=== PATIENT | female | born 1950 | race Caucasian/White ===

== ENCOUNTER 2016-11-16 17:56 | Emergency (ER) | payer BC ==
[2016-11-16 18:45] VITALS: BP 136/67
--- NOTE | 2016-11-16 19:16 | UC ---
FLU HPI - HPI Summary HPI Summary: pt c/o influenza like symptoms of nasal congestion, sore throat, sinus pressure , fever, chills, myalgia and generalized malaise X 1 week - History of Current Complaint Chief Complaint: UCGeneralIllness Stated Complaint: CONGESTION/FEVER Time Seen by Provider: 11/16/16 18:47 Hx Obtained From: Patient Hx Last Menstrual Period: n/a ?: No Onset/Duration: Gradual Onset, Lasting Days Severity Currently: Moderate Severity Initially: Mild Associated Signs & Symptoms: Positive: Fever, Myalgia, Cough, Sore Throat, Nasal Congestion Related Hx: Possible Flu/Infectious Exposure - Allergy/Home Medications Allergies/Adverse Reactions: Allergies Allergy/AdvReac Type Severity Reaction Status Date / Time Sulfamethoxazole Allergy Rash Verified 11/16/16 18:45 w/Trimethoprim [From Bactrim] PMH/Surg Hx/FS Hx/Imm Hx Previously Healthy: No - see pmh Cardiovascular History Of: Reports: Hypertension - Surgical History Surgical History: Yes Surgery Procedure, Year, and Place: Left Oopherectomy, 2002, ; Appendectomy, 1957 - Family History Known Family History: Positive: Hypertension - Social History Alcohol Use: Rare Substance Use Type: None Smoking Status (MU): Never Smoked Tobacco - Immunization History Most Recent Influenza Vaccination: 06/28/16 Review of Systems Constitutional: Fever, Chills, Fatigue Skin: Negative Eyes: Negative ENT: Sore Throat, Other - sinus pressure, nasal congestion Respiratory: Cough Cardiovascular: Negative Gastrointestinal: Negative Genitourinary: Negative Motor: Negative Neurovascular: Negative Musculoskeletal: Myalgia Neurological: Negative Psychological: Negative All Other Systems Reviewed And Are Negative: Yes Physical Exam Triage Information Reviewed: Yes Appearance: Ill-Appearing Vital Signs: Initial Vital Signs Temp 98.4 F 11/16/16 18:41 Pulse 86 11/16/16 18:41 Resp 16 11/16/16 18:41 BP 136/67 11/16/16 18:41 Pulse Ox 98 11/16/16 18:41 ENT: Positive: Pharyngeal erythema, Nasal congestion, TM bulging - left TM, Other: - maxillary and frontal tenderness Neck exam: Normal Respiratory Exam: Normal Cardiovascular Exam: Normal Musculoskeletal Exam: Normal Neurological Exam: Normal Psychological Exam: Normal Skin Exam: Normal Flu Course/Dx - Differential Dx/Diagnosis Differential Diagnosis/HQI/PQRI: Bronchitis, Influenza, Upper Respiratory Infection Provider Diagnoses: sinusitis Discharge - Discharge Plan Condition: Stable Disposition: HOME Prescriptions: Amoxicillin (*) 875 mg PO BID #20 tab Patient Education Materials: Sinusitis (ED) Referrals: Faustino TOURE,Pratima Harrell [Primary Care Provider] -
== END 2016-11-16 19:38 | disposition home or self-care (01) ==
LOC: UCCORT 17:56
DX: J32.9 Chronic sinusitis, unspecified (principal); Z88.2 Allergy status to sulfonamides
CPT/HCPCS: 87502; 99212; G0463

== ENCOUNTER 2018-10-16 10:25 | Day surgery (SDC) | payer BC ==
[2018-10-16] MEDS ORDERED: Midazolam* 1 MG/ML 5 ML VIAL (5 MG) ONE (11:52)
[2018-10-16] MEDS ORDERED: Lidocaine 2% EPI 1:200000 MPF*10-20 ML VIAL ONE (12:10)
[2018-10-16] MEDS ORDERED: Neomycin/Polymy/Dex OPTH.SUSP* MAXITROL 0.1% 5 ML ONE (12:10)
[2018-10-16] MEDS ORDERED: Phenylephrine 2.5% OPTH.SOL* 2 ML BTL ONE (12:10)
[2018-10-16] MEDS ORDERED: Lidocaine 1%* 5 ML VIAL ONE (12:10)
[2018-10-16] MEDS ORDERED: Povidone Iodine 5% OPTH* 30 ML BTL ONE (12:10)
[2018-10-16] MEDS ORDERED: acetaZOLAMIDE TAB* 250 MG ONE (12:10)
[2018-10-16] MEDS ORDERED: Cyclopentolate 1% OPTH.SOL* 2 ML BTL ONE (12:10)
[2018-10-16] MEDS ORDERED: Ketorolac 0.5% OPHTH (NF) 0.5 % 5 ML BTL ONE (12:10)
[2018-10-16] MEDS ORDERED: Proparacaine 0.5% OPHTH.SOL* 15 ML BTL ONE (12:10)
[2018-10-16] MEDS ORDERED: fentaNYL* 50 MCG/ML 2 ML VIAL (100 MCG VIAL) ONE (12:26)
--- NOTE | 2018-10-16 14:48 | OP ---
DATE OF OPERATION: 10/16/2018. DATE OF : 1950. SURGEON: Pancho Abraham M.D. PREOPERATIVE DIAGNOSIS: Cataract left eye. POSTOPERATIVE DIAGNOSIS: Cataract left eye. OPERATIVE PROCEDURE: Extracapsular cataract extraction with intraocular lens implant left eye. PROCEDURE: The patient was brought to the operating room after being given 1/2% Alcaine with epineph rine drops in the preoperative area. The eye was prepped and draped in the usual sterile fashion. S terile drape and eyelid speculum were placed. Again, topical 1/2% Alcaine with epinephrine was given . A paracentesis incision was made at the 3 o'clock position with the No.75 blade. Clear cornea inc ision 2.2 x 2.2-mm was created at the 6 o'clock position starting at the anterior limbus using the 2. 2-mm keratome. The anterior chamber was irrigated with 0.4 mL of 1% non-preservative intracameral li docaine and filled with DisCoVisc. A capsulorrhexis was completed using the cystotome and the Utrata forceps. Hydrodissection was performed with balanced salt solution. The lens nucleus was removed wi th the Phacoemulsification handpiece without incident. Cortex was removed with the irrigation-aspira tion handpiece. The capsular bag was re-inflated using DisCoVisc and an [id number] 26.5 implant was inse rted with the shooter. The irrigation-aspiration handpiece was used to remove all residual DisCoVisc . The eye was refilled with balanced salt solution and the wound checked and found to be watertight. Topical Maxitrol drops were given. [id number]/[facility] #: [id number]
[2018-10-22] MEDS ORDERED: Buffered Lidocaine 1% SYRIN* 1 ML/SYRINGE INTRADERM ONE (14:05)
[2018-10-23] MEDS ORDERED: Acetaminophen TAB* 325 MG PO PRN (05:00)
[2018-10-23 11:07] VITALS: BP 117/74
== END 2018-10-16 12:55 | disposition home or self-care (01) ==
LOC: OREAST 10:25
PROVIDERS: ATTEND Specialist
DX: H25.812 Combined forms of age-related cataract, left eye (principal); H35.372 Puckering of macula, left eye
CPT/HCPCS: A9270-GY; J2250; J3010

== ENCOUNTER 2018-10-23 08:20 | Day surgery (SDC) | payer BC ==
[2018-10-16 12:46] VITALS: BP 122/83
[~2018-10-23 08:20] MED LIST: Acetaminophen TAB* 325 MG PO PRN; Buffered Lidocaine 1% SYRIN* 1 ML/SYRINGE INTRADERM ONE
[2018-10-23] MEDS ORDERED: Midazolam* 1 MG/ML 5 ML VIAL (5 MG) ONE (10:33)
[2018-10-23] MEDS ORDERED: fentaNYL* 50 MCG/ML 2 ML VIAL (100 MCG VIAL) ONE (10:47)
[2018-10-23] MEDS ORDERED: Povidone Iodine 5% OPTH* 30 ML BTL ONE (11:32)
[2018-10-23] MEDS ORDERED: Phenylephrine 2.5% OPTH.SOL* 2 ML BTL ONE (11:32)
[2018-10-23] MEDS ORDERED: Neomycin/Polymy/Dex OPTH.SUSP* MAXITROL 0.1% 5 ML ONE (11:32)
[2018-10-23] MEDS ORDERED: Lidocaine 1%* 5 ML VIAL ONE (11:32)
[2018-10-23] MEDS ORDERED: Cyclopentolate 1% OPTH.SOL* 2 ML BTL ONE (11:32)
[2018-10-23] MEDS ORDERED: Ketorolac 0.5% OPHTH (NF) 0.5 % 5 ML BTL ONE (11:32)
[2018-10-23] MEDS ORDERED: Proparacaine 0.5% OPHTH.SOL* 15 ML BTL ONE (11:32)
[2018-10-23] MEDS ORDERED: Lidocaine 2% EPI 1:200000 MPF*10-20 ML VIAL ONE (11:32)
--- NOTE | 2018-10-23 12:00 | OP ---
OPERATIVE NOTE: DATE OF OPERATION: 10/23/18 DATE OF : [birth year] SURGEON: Pancho Abraham M.D. PREOPERATIVE DIAGNOSIS: Cataract, right eye. POSTOPERATIVE DIAGNOSIS: Cataract, right eye. OPERATIVE PROCEDURE: Extracapsular cataract extraction with intraocular lens implant, right eye. PROCEDURE: The patient was brought to the operating room after being given 1/2% Alcaine with epineph rine drops in the preoperative area. The eye was prepped and draped in the usual sterile fashion. S terile drape and eyelid speculum were placed. Again, topical 1/2% Alcaine with epinephrine was given . A paracentesis incision was made at the 9 o'clock position with the No.75 blade. Clear cornea inc ision 2.2 x 2.2-mm was created at the 12 o'clock position starting at the anterior limbus using the 2 .2-mm keratome. The anterior chamber was irrigated with 0.4 mL of 1% non-preservative intracameral l idocaine and filled with DisCoVisc. A capsulorrhexis was completed using the cystotome and the Utrat a forceps. Hydrodissection was performed with balanced salt solution. The lens nucleus was removed w ith the Phacoemulsification handpiece without incident. Cortex was removed with the irrigation-aspir ation handpiece. The capsular bag was re-inflated using DisCoVisc and an [id number] implant was inser vinay with the shooter. The irrigation-aspiration handpiece was used to remove all residual DisCoVisc. The eye was refilled with balanced salt solution and the wound checked and found to be watertight. Topical Maxitrol drops were given. [id number]/[facility] #: [id number]
== END 2018-10-23 11:18 | disposition home or self-care (01) ==
LOC: OREAST 08:20
PROVIDERS: ATTEND Specialist
DX: H25.811 Combined forms of age-related cataract, right eye (principal); H35.372 Puckering of macula, left eye; I10 Essential (primary) hypertension
CPT/HCPCS: A9270-GY; J2250; J3010; V2632

== ENCOUNTER 2018-12-12 18:29 | Emergency (ER) | payer BC ==
[2018-12-12 19:21] VITALS: BP 128/75
--- NOTE | 2018-12-12 20:14 | UC ---
Throat Pain/Nasal Ochoa HPI - HPI Summary HPI Summary: 2 day history of scratchy throat, with progressive harsh cough and onset of chills today. Works at [employer], where there have been many flu cases. She comes today for testing. Has had a flu shot. History of cold induced asthma; has not been using albuterol with this illness. - History of Current Complaint Chief Complaint: UCGeneralIllness Stated Complaint: SORE THROAT Time Seen by Provider: 12/12/18 20:02 Hx Obtained From: Patient Hx Last Menstrual Period: n/a Onset/Duration: Gradual Onset, Lasting Days - 2 Severity: Mild Pain Intensity: 4 Cough: Nonproductive Associated Signs & Symptoms: Positive: Dysphagia, Hoarseness. Negative: Fever, Vomiting - Epiglottits Risk Factors Epiglottis Risk Factors: Negative - Allergies/Home Medications Allergies/Adverse Reactions: Allergies Allergy/AdvReac Type Severity Reaction Status Date / Time sulfamethoxazole Allergy Rash Verified 12/12/18 19:11 [From Bactrim] trimethoprim [From Bactrim] Allergy Rash Verified 12/12/18 19:11 Home Medications: Home Medications Aspirin TAB* [Aspirin 325 MG TAB*] 325 mg PO DAILY 12/12/18 [History Confirmed 12/12/18] Ibuprofen TAB* [Advil TAB*] 400 mg PO Q6H PRN 12/12/18 [History Confirmed ] Pseudoephedrine TAB* [Sudafed TAB*] 30 mg PO Q6H PRN 12/12/18 [History Confirmed 12/12/18] PMH/Surg Hx/FS Hx/Imm Hx Previously Healthy: Yes Cardiovascular History: Hypertension Respiratory History: Asthma - cold induced. - Surgical History Surgical History: Yes Surgery Procedure, Year, and Place: Left Salping-Oopherectomy, 2002, [place]; Appendectomy, 1957. Total Hysterectomy 03/2018 - Family History Known Family History: Positive: Hypertension - Social History Occupation: Employed Full-time Lives: With Family Alcohol Use: Weekly Alcohol Amount: 2-3 times per week-wine with dinner Substance Use Type: None Smoking Status (MU): Never Smoked Tobacco - Immunization History Most Recent Influenza Vaccination: 06/28/16 Review of Systems All Other Systems Reviewed And Are Negative: Yes Constitutional: Positive: Chills, Fatigue Skin: Positive: Negative Eyes: Positive: Negative ENT: Positive: Sore Throat Respiratory: Positive: Cough. Negative: Shortness Of Breath Cardiovascular: Positive: Negative, Other - treated hypertension Gastrointestinal: Positive: Negative Genitourinary: Positive: Negative Motor: Positive: Negative Neurovascular: Positive: Negative Musculoskeletal: Positive: Myalgia Neurological: Positive: Headache Psychological: Positive: Negative Is Patient Immunocompromised?: No Physical Exam Triage Information Reviewed: Yes Appearance: No Pain Distress, Obese Vital Signs: Initial Vital Signs Temp 98.1 F 12/12/18 19:14 Pulse 89 12/12/18 19:14 Resp 15 12/12/18 19:14 BP 128/75 12/12/18 19:14 Pulse Ox 99 12/12/18 19:14 Eyes: Positive: Conjunctiva Clear ENT: Positive: Pharynx normal Neck: Positive: Supple, Nontender, No Lymphadenopathy Respiratory: Positive: Lungs clear, Normal breath sounds Cardiovascular: Positive: RRR, No Murmur Neurological: Positive: Alert Skin Exam: Normal Throat Pain/Nasal Course/Dx - Course Course Of Treatment: symptomatic treatment of respiratory illness - Differential Dx/Diagnosis Differential Diagnosis/HQI/PQRI: Influenza, Laryngitis, URI Provider Diagnosis: URI, acute Discharge - Sign-Out/Discharge Documenting (check all that apply): Patient Departure All imaging exams completed and their final reports reviewed: No Studies - Discharge Plan Condition: Stable Disposition: HOME Patient Education Materials: Viral Syndrome (ED) Referrals: Faustino TOURE,Pratima Harrell [Primary Care Provider] - Additional Instructions: Continue symptomatic treatment of your respiratory symptoms, with acetaminophen as needed for control of pain, and over the counter cough suppressants as needed. - Billing Disposition and Condition Condition: STABLE Disposition: Home
[2018-12-12 20:31] LABS: Influenza A Molecular NEGATIVE (Negative); Influenza B Molecular NEGATIVE (Negative)
== END 2018-12-12 20:45 | disposition home or self-care (01) ==
LOC: UCCORT 18:29
DX: J06.9 Acute upper respiratory infection, unspecified (principal); I10 Essential (primary) hypertension; Z88.2 Allergy status to sulfonamides; Z79.82 Long term (current) use of aspirin
CPT/HCPCS: 99211; G0463

== ENCOUNTER 2019-03-09 09:39 | Emergency (ER) | payer BC ==
[2019-03-09 09:56] VITALS: BP 155/76
--- NOTE | 2019-03-09 10:03 | UC ---
Respiratory Complaint HPI - HPI Summary HPI Summary: 69 yo female with cough/congestion, sore throat and fever x 4 days no cp or sob no n/v/d - History of Current Complaint Chief Complaint: UCRespiratory Stated Complaint: SORE THROAT, CONGESTION Time Seen by Provider: 03/09/19 09:46 Hx Obtained From: Patient Hx From Patient Unobtainable Due To: Dementia Hx Last Menstrual Period: n/a Onset/Duration: Gradual Onset, Lasting Days Timing: Constant Severity Initially: Mild Severity Currently: Moderate Pain Intensity: 0 Pain Scale Used: 0-10 Numeric Character: Cough: Productive Aggravating Factors: Nothing Alleviating Factors: Nothing Associated Signs And Symptoms: Positive: Fever, Chills, Nasal Congestion, Sinus Discomfort - Allergies/Home Medications Allergies/Adverse Reactions: Allergies Allergy/AdvReac Type Severity Reaction Status Date / Time sulfamethoxazole Allergy Rash Verified 03/09/19 09:52 [From Bactrim] trimethoprim [From Bactrim] Allergy Rash Verified 03/09/19 09:52 Home Medications: Home Medications Guaifen/Phenyleph/Acetaminophn [Tylenol Sinus Severe Caplet] 2 each PO Q4H PRN 03/09/19 [History Confirmed 03/09/19] PMH/Surg Hx/FS Hx/Imm Hx Cardiovascular History: Hypertension - Surgical History Surgical History: Yes Surgery Procedure, Year, and Place: Left Salping-Oopherectomy, 2002, ; Appendectomy, 1957. Total Hysterectomy 03/2018 - Family History Known Family History: Positive: Hypertension - Social History Alcohol Use: Weekly Alcohol Amount: 2-3 times per week-wine with dinner Substance Use Type: None Smoking Status (MU): Never Smoked Tobacco - Immunization History Most Recent Influenza Vaccination: 06/28/16 Review of Systems All Other Systems Reviewed And Are Negative: Yes Constitutional: Positive: Fever, Chills Skin: Positive: Negative Eyes: Positive: Negative ENT: Positive: Sore Throat, Sinus Congestion Respiratory: Positive: Cough Cardiovascular: Positive: Negative Gastrointestinal: Positive: Negative Genitourinary: Positive: Negative Motor: Positive: Negative Neurovascular: Positive: Negative Musculoskeletal: Positive: Negative Neurological: Positive: Negative Psychological: Positive: Negative Physical Exam Triage Information Reviewed: Yes Completion Of Physical Exam Limited Due To: Altered Mental Status Appearance: Well-Appearing, No Pain Distress, Well-Nourished Vital Signs: Initial Vital Signs Temp 98.3 F 03/09/19 09:49 Pulse 66 03/09/19 09:49 Resp 18 03/09/19 09:49 BP 155/76 03/09/19 09:49 Pulse Ox 100 03/09/19 09:49 Vital Signs Reviewed: Yes Eyes: Positive: Conjunctiva Clear ENT: Positive: Pharyngeal erythema, Nasal congestion, Uvula midline. Negative: Tonsillar swelling, Tonsillar exudate, Trismus, Muffled voice Neck: Positive: Supple, Nontender, No Lymphadenopathy Respiratory: Positive: Lungs clear, Normal breath sounds, No respiratory distress, No accessory muscle use Cardiovascular: Positive: RRR, No Murmur Musculoskeletal: Positive: ROM Intact, No Edema Neurological: Positive: Alert Psychological Exam: Normal Skin Exam: Normal Respiratory Course/Dx - Differential Dx/Diagnosis Provider Diagnosis: Acute bronchitis Discharge - Sign-Out/Discharge Documenting (check all that apply): Patient Departure All imaging exams completed and their final reports reviewed: No Studies - Discharge Plan Condition: Stable Disposition: HOME Prescriptions: Amoxicillin PO (*) [Amoxicillin 875 MG (*)] 875 mg PO BID #14 tab Patient Education Materials: Acute Bronchitis (ED) Referrals: Faustino TOURE,Pratima Harrell [Primary Care Provider] - 4 Days (if not better) - Billing Disposition and Condition Condition: STABLE Disposition: Home
== END 2019-03-09 10:14 | disposition home or self-care (01) ==
LOC: UCCORT 09:39
DX: J20.9 Acute bronchitis, unspecified (principal); Z88.2 Allergy status to sulfonamides
CPT/HCPCS: 99212; G0463

== ENCOUNTER 2019-07-09 12:43 | Emergency (ER) | payer BC ==
[2019-07-09 13:12] VITALS: BP 136/63
--- NOTE | 2019-07-09 13:34 | UC ---
UC Dental HPI - HPI Summary HPI Summary: 69-year-old female comes in with a chief complaint of left upper posterior dental pain. Started 2 days ago. Pain is worse with chewing. Pain radiates to the left ear. No fevers no chills feels well otherwise. Did take ibuprofen which didn't help decrease the pain some. Patient had recurrent dental pain in this area. No upper respiratory tract infection symptoms. No rash. - History of Current Complaint Chief Complaint: UCDentalProblem Stated Complaint: tooth pain Time Seen by Provider: 07/09/19 13:14 Hx Last Menstrual Period: n/a Pain Intensity: 8 - Allergies/Home Medications Allergies/Adverse Reactions: Allergies Allergy/AdvReac Type Severity Reaction Status Date / Time sulfamethoxazole Allergy Rash Verified 07/09/19 13:03 [From Bactrim] trimethoprim [From Bactrim] Allergy Rash Verified 07/09/19 13:03 PMH/Surg Hx/FS Hx/Imm Hx Previously Healthy: Yes Cardiovascular History: Hypertension - Surgical History Surgical History: Yes Surgery Procedure, Year, and Place: Left Salping-Oopherectomy, 2002, ; Appendectomy, 1957. Total Hysterectomy 03/2018 - Family History Known Family History: Positive: Hypertension - Social History Alcohol Use: Weekly Alcohol Amount: 2-3 times per week-wine with dinner Substance Use Type: None Smoking Status (MU): Never Smoked Tobacco - Immunization History Most Recent Influenza Vaccination: 06/28/16 Review of Systems All Other Systems Reviewed And Are Negative: Yes Constitutional: Positive: Negative Skin: Positive: Negative Eyes: Positive: Negative ENT: Positive: Dental Pain Respiratory: Positive: Negative Cardiovascular: Positive: Negative Gastrointestinal: Positive: Negative Motor: Positive: Negative Neurovascular: Positive: Negative Musculoskeletal: Positive: Negative Neurological: Positive: Negative Psychological: Positive: Negative Is Patient Immunocompromised?: No Physical Exam Triage Information Reviewed: Yes Appearance: Well-Appearing, No Pain Distress, Well-Nourished Vital Signs: Initial Vital Signs Temp 98.2 F 07/09/19 13:09 Pulse 89 07/09/19 13:09 Resp 18 07/09/19 13:09 BP 136/63 07/09/19 13:09 Pulse Ox 99 07/09/19 13:09 Vital Signs Reviewed: Yes Eye Exam: Normal Eyes: Positive: Conjunctiva Clear ENT: Positive: Pharynx normal, TMs normal, Uvula midline, Other - Patient is nontender at the TMJ. Nontender over the parotid gland. Mildly tender at the angle of the jaw. Tragus is nontender to palpation and there is no debris or swelling in the ear canal. Dental: Positive: Other: - The left upper posterior molars is some extensive decay. Neck: Positive: Supple Respiratory: Positive: No respiratory distress Musculoskeletal: Positive: Strength Intact, ROM Intact Neurological: Positive: Alert Psychological: Positive: Age Appropriate Behavior Skin Exam: Normal - No rash on the face Dental Complaint Course/Dx - Differential Dx/Diagnosis Provider Diagnosis: Tooth ache Discharge ED - Sign-Out/Discharge Documenting (check all that apply): Patient Departure All imaging exams completed and their final reports reviewed: No Studies - Discharge Plan Condition: Stable Disposition: HOME Prescriptions: Penicillin VK 500 MG TAB(NF) [Penicillin VK 500 mg Tab] 500 mg PO QID #40 tab Patient Education Materials: Toothache (ED) Referrals: Faustino TOURE,Pratima Harrell [Primary Care Provider] - Additional Instructions: FOLLOW UP WITH YOUR DENTIST. GET REEVALUATED SOONER IF NOT IMPROVING OR YOUR CONDITION WORSENS OR ANY QUESTIONS OR CONCERNS - Billing Disposition and Condition Condition: STABLE Disposition: Home
== END 2019-07-09 13:38 | disposition home or self-care (01) ==
LOC: UCCORT 12:43
DX: K08.89 Other specified disorders of teeth and supporting structures (principal); Z88.1 Allergy status to other antibiotic agents; I10 Essential (primary) hypertension
CPT/HCPCS: 99212; G0463

== ENCOUNTER 2019-09-27 09:48 | Emergency (ER) | payer BC ==
--- OUTSIDE RECORDS SUMMARY | 2019-09-27 09:54 | XMS REPORT | Continuity of Care Document ---
:1950 External Reference #:[id number] Author Name Pancho Abraham M.D. Address [address] [place] [address] Care Team Providers Name Role Phone Pratima Mauricio M.D. - Internal Care Team Information Indirect Sales Representative Medicine Problems Active Problems Provider Date Essential hypertension Onset: Combined form of senile cataract Pancho Abraham M.D. Onset: 07/12/2018 Epiretinal membrane Pancho Abraham M.D. Onset: 10/08/2018 Presence of intraocular lens Pancho Abraham M.D. Onset: 10/17/2018 Refractive amblyopia Geetha Santos O.D. Onset: 11/08/2018 Social History Type Date Description Comments Sex Unknown ETOH Use Occasionally consumes alcohol Tobacco Use Start: Unknown Patient has never smoked Smoking Status Reviewed: 08/26/19 Patient has never smoked Allergies, Adverse Reactions, Alerts Active Allergies Reaction Severity Comments Date Bactrim 07/12/2018 Medications Active Medications SIG Qnty Indications Ordering Date Provider Losartan Potassium Unknown 100mg Tablets Hydrochlorothiazide Unknown 12.5mg Capsules Multi Vitamin Daily Unknown Tablets Aspirin 81 Low Dose Unknown 81mg Chewtabs Colace 2 by mouth Unknown 100mg Capsules twice a day Calcium 600 Unknown 600mg Tablets Fish Oil 1 by mouth Unknown 1000mg Capsules every day Immunizations Description No Information Available Vital Signs Date Vital Result Comment 10/17/2018 1:40pm BP Systolic 152 mmHg BP Diastolic 82 mmHg Heart Rate 77 /min Respiratory Rate 18 /min Results Description No Information Available Procedures Description No Information Available Medical Devices Description No Information Available Encounters Description No Information Available Assessments Date Code Description Provider 08/26/2019 H35.372 Puckering of macula, left eye Pancho Abraham M.D. 08/26/2019 H53.022 Refractive amblyopia, left eye Pancho Abraham M.D. 08/26/2019 Z96.1 Presence of intraocular lens Pancho Abraham M.D. Plan of Treatment Future Appointment(s):10/24/2019 1:00 pm - Pancho Abraham M.D. at [facility]10/26/2018 - Pancho Abraham M.D.H35.372 Puckering of macula, left eyeComments:Smoking can increase the risk of developing or worsening any eye related disease, as well as affect your overall health. If you are a smoker , we strongly recommend that you quit.If you are not a smoker, we strongly recommend that you do not start. A Macular Pucker is a wrinkling of the retina tissue. It can cause distortion in your vision. Please call the office if you notice a decrease or new distortion in your vision before then.Follow up: 1 Year Follow Up Diagnostic Refraction OCT MAC You can expect to have your eyes dilated at your next visit. If Dr. Abraham orders any additional testing, it may require extra time. We recommend that youbring sunglasses, as dilation drops often make you light sensitive until they wear off. We always recommend you bring someone to drive you home if you are uncomfortable driving with your eyes dilated. If you have any questions before your next visit, feel free to call our office at .H53.022 Refractive amblyopia, left eyeComments :You have Amblyopia in your left eye. You have never been able to see perfectly out of this eye.Z96.1 Presence of intraocular lensComments:The artificial lens implants in both eyes appear to be stable at this time. Functional Status Description No Information Available Mental Status Description No Information Available Referrals Description No Information Available
--- OUTSIDE RECORDS SUMMARY | 2019-09-27 09:54 | XMS REPORT | Continuity of Care Document ---
:1950 External Reference #:[id number] Author Name Pratima Moon MD Address [address] [facility]. [address] [place] [address] Care Team Providers Name Role Phone Pratima Fajardo MD - Internal Care Team Information Emergency Department Coordinator [phone] Medicine Problems Active Problems Provider Date Hypertensive disorder Onset: 02/26/2015 Lichen sclerosus et atrophicus Onset: 02/26/2015 Social History Type Date Description Comments Sex Unknown ETOH Use Occasionally consumes alcohol Tobacco Use Start: Unknown Patient has never smoked Recreational Drug Use Never Used Drugs Smoking Status Reviewed: 07/31/19 Patient has never smoked Exercise Type/Frequency Exercises rarely Allergies, Adverse Reactions, Alerts Active Allergies Reaction Severity Comments Date No Known Allergies 04/04/2016 Bactrim Urticaria 07/12/2017 Medications Active Medications SIG Qnty Indications Ordering Date Provider Colace 1 by mouth 45caps Pratima Mauricio 07/31/2019 100mg Capsules three times a MD Sarai day needed Folic Acid 1 by mouth 30tabs Pratima Mauricio 07/31/2019 1mg Tablets every day MD Sarai Vitamin E 1 by mouth 90caps Pratima Mauricio 07/31/2019 400Unit Capsules every day MD Sarai B Complex 1 by mouth 30caps Pratima Mauricio 07/31/2019 Capsules every day MD Sarai Calcium 600 one by mouth Pratima Mauricio 07/31/2019 600mg Tablets every other MD Sarai day Losartan Potassium 1 by mouth 90tabs I10 Pratima Mauricio 11/06/2017 100mg Tablets every day MD Sarai Aspirin EC 1 by mouth Pratima Mauricio 07/12/[address] every day MD Sarai Calcium 600 one by mouth Pratima Mauricio 07/12/2017 600mg Tablets every other MD Sarai day Hydrochlorothiazide take 1 tablet 90tabs Pratima Mauricio 02/26/2015 25mg Tablets by oral route MD Sarai every day Methotrexate Sodium 5 tabs once a Unknown 2.5mg Tablets week Immunizations CPT Code Status Date Vaccine Lot # [id number] Given 07/31/2019 Prevnar 13 [id number] Given 07/31/2019 Prevnar 13 [id number] Given 07/31/2019 Influenza Vaccine, High Dose 65 > (Fluad Trivalent) [id number] Given 07/31/2019 Influenza Vaccine, High Dose 65 > (Fluad Trivalent) [id number] Given 08/01/2018 Influenza Vaccine, High Dose > 65 Years Old (Includes Medicare) Vital Signs Date Vital Result Comment 07/31/2019 12:25pm Height 65.5 inches 5'5.50" Weight 234.25 lb BMI (Body Mass Index) 38.4 kg/m2 BP Systolic 120 mmHg BP Diastolic 80 mmHg Heart Rate 78 /min O2 % BldC Oximetry 97 % 09/17/2018 8:43am Weight 232.00 lb BP Systolic 140 mmHg BP Diastolic 80 mmHg Heart Rate 77 /min O2 % BldC Oximetry 98 % Results Description No Information Available Procedures Description No Information Available Medical Devices Description No Information Available Encounters Description No Information Available Assessments Date Code Description Provider 07/31/2019 Z00.00 Encounter for general adult medical Pratima Moon MD examination without abnormal findings 07/31/2019 I10 Essential (primary) hypertension Pratima Moon MD 07/31/2019 R73.9 Hyperglycemia, unspecified Pratima Moon MD 07/31/2019 G56.03 Carpal tunnel syndrome, bilateral upper Pratima Moon MD limbs Plan of Treatment Future Appointment(s):08/04/2020 10:00 am - Pratima Moon MD at [facility] Primary Care AT [id number]/31/2019 - Pratima Moon MDZ00.00 Encounter for general adult medical examination without abnormal [id number] Essential ( primary) [id number] Hyperglycemia, [id number] Carpal tunnel syndrome, bilateral upper limbsReferral:Cornell Fountain M.D., Surgery, Orthopedic Functional Status Functional Condition Comment Date Status Glasses Active Mental Status Description No Information Available Referrals Refer to Reason for Referral Status Appt Date Cornell Fountain M.D. carpal tunnel Created [facility] [address] [place] [address] [phone]
[2019-09-27 10:20] VITALS: BP 137/68
[2019-09-27 10:35] LABS: Influenza A Molecular POSITIVE (Negative)
--- NOTE | 2019-09-27 10:57 | UC ---
FLU HPI - HPI Summary HPI Summary: 3 days of cough, fatigue, muscle aches. Had the flu shot this year. Cough is painful. nothing makes it better/worse - History of Current Complaint Chief Complaint: UCRespiratory Stated Complaint: COUGH,FEVER,BODYACHES Time Seen by Provider: 09/27/19 10:50 Hx Obtained From: Patient Hx Last Menstrual Period: n/a Pain Intensity: 0 Pain Scale Used: 0-10 Numeric Associated Signs & Symptoms: Positive: Cough, Nasal Congestion. Negative: Sore Throat, Headache, Vomiting, Diarrhea - Allergy/Home Medications Allergies/Adverse Reactions: Allergies Allergy/AdvReac Type Severity Reaction Status Date / Time sulfamethoxazole Allergy Rash Verified 07/09/19 13:03 [From Bactrim] trimethoprim [From Bactrim] Allergy Rash Verified 07/09/19 13:03 Home Medications: Home Medications Methotrexate TAB* 15 mg PO WEEKLY 09/27/19 [History Confirmed 09/27/19] PMH/Surg Hx/FS Hx/Imm Hx - Additional Past Medical History Additional PMH: RA Previously Healthy: Yes Respiratory History: Asthma - Surgical History Surgical History: Yes Surgery Procedure, Year, and Place: Left Salping-Oopherectomy, 2002, ; Appendectomy, 1957. Total Hysterectomy 03/2018 - Family History Known Family History: Positive: Hypertension - Social History Alcohol Use: Weekly Alcohol Amount: 2-3 times per week-wine with dinner Substance Use Type: None Smoking Status (MU): Never Smoked Tobacco - Immunization History Most Recent Influenza Vaccination: 06/28/16 Review of Systems All Other Systems Reviewed And Are Negative: Yes Constitutional: Positive: Fever, Fatigue. Negative: Chills Skin: Negative: Rash ENT: Positive: Sore Throat, Sinus Congestion Physical Exam Triage Information Reviewed: Yes Appearance: Well-Appearing Vital Signs: Initial Vital Signs Temp 97.5 F 09/27/19 10:17 Pulse 78 09/27/19 10:17 Resp 18 09/27/19 10:17 BP 137/68 09/27/19 10:17 Pulse Ox 98 09/27/19 10:17 Vital Signs Reviewed: Yes Respiratory Exam: Normal Cardiovascular Exam: Normal Neurological: Positive: Alert Skin: Negative: Rashes Flu Course/Dx - Course Course Of Treatment: Pt w/ viral illness that testing +influenza A. Will give tamiflu given her age. vitals are good. no resp. distress. - Differential Dx/Diagnosis Provider Diagnosis: Influenza A Discharge ED - Sign-Out/Discharge Documenting (check all that apply): Patient Departure All imaging exams completed and their final reports reviewed: No Studies - Discharge Plan Condition: Good Disposition: HOME Prescriptions: Benzonatate CAP* [Tessalon 100 MG CAP*] 100 mg PO TID PRN 5 Days #15 cap PRN Reason: Cough Oseltamivir CAP* [Tamiflu CAP*] 75 mg PO BID 5 Days #10 cap Patient Education Materials: Influenza (ED) Referrals: Faustino TOURE,Pratima Harrell [Primary Care Provider] - Additional Instructions: If you have worsening breathing please go to the Emergency Room - Billing Disposition and Condition Condition: GOOD Disposition: Home
== END 2019-09-27 11:06 | disposition home or self-care (01) ==
LOC: UCCORT 09:48
DX: J11.1 Influenza due to unidentified influenza virus with other respiratory manifestations (principal); M06.9 Rheumatoid arthritis, unspecified; J45.909 Unspecified asthma, uncomplicated; Z88.2 Allergy status to sulfonamides; Z79.899 Other long term (current) drug therapy
CPT/HCPCS: 99212; G0463

== ENCOUNTER 2022-12-19 07:30 | Inpatient (IN) ==
[~2022-12-19 07:30] MED LIST changes: -Acetaminophen TAB* 325 MG PO PRN; +Buffered Lidocaine 1% SYRIN 1 ml INTRADERM ONE; -Buffered Lidocaine 1% SYRIN* 1 ML/SYRINGE INTRADERM ONE; +Lactated Ringers 1000 ml BAG 1,000 ML IV SCH; +Naloxone 0.4 mg VIAL 0.4 mg/ml 1 ml VIAL IV PRN; +Ondansetron 4 mg VIAL 2 MG/ML 2 ml VIAL IV PRN; +fentaNYL 100 mcg/2 ml 50 MCG/ML VIAL IV PRN; +oxyCODONE/Acetamin 5/325 mg TAB PO PRN
[2022-12-19] MEDS ORDERED: Ketamine HCL 50 mg/ml 10 ml VIAL (500 MG) ONE (09:51)
[2022-12-19] MEDS ORDERED: Propofol 10 MG/ML 20 ML BTL ONE ×2 (09:51→13:39)
[2022-12-19] MEDS ORDERED: Lidocaine 2% PF 5 ML VIAL ONE (09:51)
[2022-12-19] MEDS ORDERED: Midazolam 2 mg/2 ml VIAL 1 mg/ml 2 ml VIAL (2 mg) ONE ×2 (09:57→11:44)
[2022-12-19] MEDS ORDERED: ceFAZolin 2 GM PREMIX 2 GM/50 ML BAG ONE (10:39)
[2022-12-19] MEDS ORDERED: ROPIVACAINE 5 MG/ML 30 ML BTL (0.5%) ONE (11:51)
[2022-12-19] MEDS ORDERED: Tranexamic Acid 1,000 MG/10 ML SDV ONE (12:15)
[2022-12-19] MEDS ORDERED: fentaNYL 250 mcg/5 ml 50 MCG/ML 5 ml VIAL (250 MCG) ONE (12:25)
[2022-12-19] MEDS ORDERED: Tranexamic Acid 1,000 MG in NS 0.9% 50 ML IV ONE (12:30)
[2022-12-19] MEDS ORDERED: Ondansetron 4 mg VIAL 2 MG/ML 2 ml VIAL ONE (12:59)
[2022-12-19] MEDS ORDERED: Dexamethasone IV 4 MG/ML VIAL 1 ml VIAL ONE (12:59)
[2022-12-19] MEDS ORDERED: Ondansetron 4 mg VIAL 2 MG/ML 2 ml VIAL IV PRN (13:39)
[2022-12-19] MEDS ORDERED: Ondansetron ODT 4 mg TAB 4 MG TAB PO PRN (13:39)
[2022-12-19] MEDS ORDERED: Magnesium Hydroxide LIQ 30 ML UDC PO PRN (13:39)
[2022-12-19] MEDS ORDERED: Lactulose 30 ml UDC PO PRN (13:39)
[2022-12-19] MEDS ORDERED: Morphine 2 MG/ML SYRINGE IV PRN (13:39)
[2022-12-19] MEDS ORDERED: Acetaminophen IV 1 GM/100ML 1,000 MG/100 ML BAG IV ONE ×2 (15:23→15:24)
[2022-12-19] MEDS ORDERED: HYDROmorphone 0.5 MG/0.5 ML SYRINGE IV SLOW PU ONE (15:25)
[2022-12-19] MEDS ORDERED: oxyCODONE/Acetamin 5/325 mg TAB ONE (15:43)
[2022-12-19] MEDS ORDERED: HYDROmorphone 1 MG/1 ML SYRINGE ONE (15:43)
[2022-12-19] MEDS: Lactated Ringers 1000 ml BAG 1,000 ML IV SCH (17:18)
[2022-12-19] MEDS ORDERED: Albuterol HFA INHALER 8 gm MDI INH PRN (18:28)
[2022-12-19] MEDS: Mometasone/Formoter 200/5 MDI INH SCH (21:05)
[2022-12-19] MEDS: Magnesium Hydroxide LIQ 30 ML UDC PO SCH (21:24)
[2022-12-19] MEDS: ceFAZolin 1 GM ADVAN 1 GM in NS 0.9% 50 ML 50 ML IVPB SCH (21:24)
[2022-12-20] MEDS: Lactated Ringers 1000 ml BAG 1,000 ML IV SCH (03:13)
[2022-12-20] MEDS: ceFAZolin 1 GM ADVAN 1 GM in NS 0.9% 50 ML 50 ML IVPB SCH (05:30)
[2022-12-20 06:44] LABS: Hematocrit 32 % (35-47); Hemoglobin 10.6 g/dL (12.0-16.0); Mean Platelet Volume 7.7 fL (7.4-10.4); Platelet Count 291 10^3/uL (150-450)
[2022-12-20 06:54] LABS: Calcium 8.2 mg/dL (8.6-10.3); Creatinine, Serum 0.79 mg/dL (0.51-0.95); eGFR CKD-EPI 78.9 (>60)
[2022-12-20] MEDS: Mometasone/Formoter 200/5 MDI INH SCH (07:23)
[2022-12-20] MEDS: Magnesium Hydroxide LIQ 30 ML UDC PO SCH (08:03)
[2022-12-20] MEDS ORDERED: Vitamin THERAPEUTIC TAB PO SCH (09:00)
[2022-12-20 12:10] VITALS: BP 103/66
== END 2022-12-20 13:21 | disposition home or self-care (01) | DRG 470 ==
LOC: AA 10:03 → INTOOBSV 10:03 → SSU 17:03
PROVIDERS: ADMIT Orthopaedic Surgery Adult Reconstructive Orthopaedic Surgery; ATTEND Orthopaedic Surgery Adult Reconstructive Orthopaedic Surgery